=== PATIENT | female | born 1945 | race Two or more races ===

== ENCOUNTER 2018-02-18 09:03 | Outpatient (CLI) | payer OTHER | END 2018-02-18 09:07 | disposition home or self-care (01) | LOC: RAD 09:03 | DX: M50.20 Other cervical disc displacement, unspecified cervical region (principal) ==

== ENCOUNTER 2018-03-06 06:55 | Day surgery (SDC) | payer OTHER ==
[~2018-03-06 06:55] MED LIST: AVAPRO300 MG PO; GABAPENTIN300 MG PO; JANUVIA50 MG PO; LEVOTHY PO; XARELTO20 MG PO; ZERTEC PO; [UNRECOGNIZED DRUG - OTHER] PO
== END 2018-03-06 11:30 | disposition home or self-care (01) ==
LOC: CIR.AMB 06:55
DX: M50.20 Other cervical disc displacement, unspecified cervical region (principal)